=== PATIENT | female | born 1975 | race African-American/Black ===

== ENCOUNTER 2019-07-13 00:30 | Emergency (ER) | payer BC ==
[~2019-07-13] VITALS: Ht 154.9 cm; Wt 59.4 kg
[2019-07-13 00:35] VITALS: BP 122/90
--- NOTE | 2019-07-13 00:35 | NUR ---
TO BED # 04 AMBULATORY
--- NOTE | 2019-07-13 00:43 | NUR ---
PATIENT SITTING UP IN BED. ASSESSMENT COMPLETED, SEE ASSESSMENT. PATIENT STATES NO NEEDS. BED IN LOW LOCKED POSITION WITH SIDE RAIL UP ON ONE SIDE.
--- NOTE | 2019-07-13 00:44 | NUR ---
DR ANTONIO AT BEDSIDE.
--- NOTE | 2019-07-13 01:00 | NUR ---
BLOOD LABS COLLECTED AND SENT TO LAB.
--- NOTE | 2019-07-13 01:11 | NUR ---
URINE COLLECTED AND SENT TO LAB.
[2019-07-13 01:26] LABS: FREE T4 (FREE THYROXINE) 1.11 ng/dL (0.76-1.46); THYROID STIMULATING HORMONE 3.6 uIU/mL (0.34-3.74)
[2019-07-13 01:28] LABS: BARBITURATE, URINE NEG. ng/ml (NEG <=200); BENZODIAZEPINE, URINE NEG. ng/mL (NEG <=200); CANNABINOID, URINE NEG. ng/mL (NEG <=50); COCAINE, URINE NEG. ng/mL (NEG <=300); OPIATE, URINE NEG. ng/mL (NEG <=2000); PHENCYCLIDINE SCREEN,URINE NEG. ng/mL (NEG <=25)
[2019-07-13 01:36] VITALS: BP 125/85
--- NOTE | 2019-07-13 01:37 | NUR ---
Patient discharged with v/s stable. Written and verbal after care instructions given and explained. Patient alert, oriented and verbalized understanding of instructions. Ambulatory with steady gait. All questions addressed prior to discharge. ID band removed. Patient advised to follow up with PMD. Rx of Sheryl given. Patient educated on indication of medication including possible reaction and side effects. Opportunity to ask questions provided and answered.
== END 2019-07-13 01:36 | disposition home or self-care (01) ==
LOC: MED 00:30
DX: G47.00 Insomnia, unspecified (principal); Z88.8 Allergy status to other drugs, medicaments and biological substances; Z98.890 Other specified postprocedural states
CPT/HCPCS: 36415; 80305; 84439; 84443; 99283